=== PATIENT | female | born 1995 | race Caucasian/White ===

== ENCOUNTER 2022-08-09 11:53 | Emergency (ER) | payer BC ==
[~2022-08-09] VITALS: Ht 162.6 cm; Wt 90.7 kg
[2022-08-09] MEDS ORDERED: OXAYDO5 M1 PO (15:41)
== END 2022-08-09 16:12 | disposition home or self-care (01) ==
LOC: ER 11:53
DX: S92.321A Displaced fracture of second metatarsal bone, right foot, initial encounter for closed fracture (principal); S92.331A Displaced fracture of third metatarsal bone, right foot, initial encounter for closed fracture; S93.324A Dislocation of tarsometatarsal joint of right foot, initial encounter; S50.311A Abrasion of right elbow, initial encounter; S80.211A Abrasion, right knee, initial encounter; V28.49XA Other motorcycle driver injured in noncollision transport accident in traffic accident, initial encounter
CPT/HCPCS: 29515; 73630; 96374-59; 96375-59; 96376-59; 99283-25; A9270; J1170; J1885